=== PATIENT | female | born 1980 | race American Indian/Alaskan Native ===

== ENCOUNTER 2016-09-22 23:37 | Emergency (ER) | payer SELFPAY ==
--- NOTE | 2016-09-23 00:06 | ED Physician Chart ---
Chief Complaint/HPI - Patient Information Date Seen:: 09/23/16 Time Seen:: 23:50 Chief Complaint:: Pt. has hx of anxiety and seizures. 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 Wants medical clearance to book. Pt. has a hx of anxiety and seizure. Last seizure was early this year. She has never been on meds. Now normal vitals and a normal physical exam. Pt. is alert and oriented , and in no distress. 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 ) Musculoskeletal: No bone or joint pain Psychiatric: Anxiety, No suicidal ideation Hematopoietic: No bruising Neurological: No syncope, No focal symptoms Past Medical History - Past Medical History Past Medical History: Seizures, Other (anxiety. Pt. also has hx of non- specific chest pain (none now).) Family History: None Social History: Smoker, No Alcohol (Pt. smokes but denies alcohol) Surgical History: other (Unspecified "gastric" surgery associated with MRSA infection. ) Medication: None Physical Exam - Physical Examination General/Constitutional: Awake, Well-developed, well-nourished, Alert, No distress, GCS 15, Non-toxic appearing, Ambulatory Head: Atraumatic Eyes: Lids, conjuctiva normal, PERRL, EOMI Skin: Nl inspection, No rash ENMT: External ears, nose nl, TM canals nl, Nasal exam nl, Lips, teeth, gums nl , Oropharynx nl, Tonsils nl Neck: Nontender, Full ROM w/o pain Respiratory: Nl effort/Exclusion, Clear to Auscultation, No Wheeze/Rhonchi/Rales Cardio Vascular: RRR, No murmur, gallop, rubs, NL S1 S2 GI: No tenderness/rebounding/guarding : No CVA tenderness Extremities: Full ROM Neuro/Psych: Alert/oriented, No focal deficits ED Septic Shock - . Is Septic Shock (SBP<90, OR Lactate>4 mmol\\L) present?: No - <6hrs of presentation: Vital Signs: Vital Signs - 8 hr 09/22/16 23:40 Temp 98 F HR 88 RR 20 BP 133/97 O2 Sat % 100 Reassessment (Disposition) - Reassessment Reassessment Condition:: Unchanged - Diagnosis Diagnosis:: 1. Cleared to incarcerate. Hx of Seizures, Anxiety - Patient Disposition Discharge/Transfer:: Nursing Home/Residential Condition at Disposition:: Stable ED Discharge Plan - Patient Disposition Admit/Discharge/Transfer: Nursing Home/Residential Condition at Disposition: Stable
== END 2016-09-23 00:19 | disposition still patient (30) ==
LOC: ER 23:37
DX: Z02.89 Encounter for other administrative examinations (principal); F41.9 Anxiety disorder, unspecified; F17.200 Nicotine dependence, unspecified, uncomplicated
CPT/HCPCS: Z7502